=== PATIENT | male | born 1965 | race Caucasian/White ===

== ENCOUNTER → 2016-05-24 | Outpatient (CLI) | payer BC ==
[~2016-05-24] MED LIST: AVEED; BACTRIM DS 8001 TAB PO; BENICAR; CADUET 10 MG-201 TAB PO; CEPHALEXIN500 M1 PO; CLARITIN 1010 MG/TAB PO; COLCHICINE0.6 MG PO; COLCRYS0.6 MG PO; COSENTYX P150 MG/1 M SQ; DEPO-TESTOS200 MG/M1 IM; FOLIC ACID 11 MG/TA1 PO; INDOCIN50 MG PO; LEVAQUIN 750MG750 M1 PO; LIPITOR 10MG10 MG PO; LORTAB 5/500 501 TAB PO; MEDROL 4MG DOSPA4 MG PO; METHOTREXATE50/2 SQ; NO HOME MEDICATIONS; NORCO 325 MG-51 TAB PO; NORVASC 10MG10 MG PO; NORVASC2.5 MG; PREDNISONE10 MG PO; PRINIVIL2.5 MG; PRINIVIL40 MG PO; PROTONIX 40MG T40 MG PO; REMICADE V100 MG/VIA; ULORIC40 MG PO; ZYLOPRIM 300MG300 MG PO
[2016-05-24 16:19] LABS: BASO % 0.5 % (0.0-2.0); EOS # 0.1 (0.0-0.7); EOS % 1.1 % (0-4.0); GRAN # 5.6 (1.4-6.5); GRAN % 67.6 % (42.2-75.2); HEMOGLOBIN 16.4 g/dl (13.5-18.0); LYMPH # 1.7 (1.2-3.4); LYMPH % 21.1 % (20.0-51.0); MEAN CELL VOLUME 94 fl (80.0-100.0); MEAN CORPUSCULAR HEMOGLOBIN 32 pg (27.0-31.0); MEAN CORPUSCULAR HGB CONC 34 g/dl (33.0-37.0); MEAN PLATELET VOLUME 9.7 fl (7.4-10.4); MONO # 0.8 (0.1-0.6); MONO % 9.1 % (1.7-9.3); PLATELET COUNT 257 K/mm3 (130-400); REDCELL DISTRIBUTION WIDTH-CV 12.5 % (11.5-14.5); WHITE BLOOD COUNT 8.2 K/mm3 (4.8-10.8)
[2016-05-24 16:33] LABS: ADJUSTED CALCIUM 9.4 mg/dL (8.4-10.2); ALBUMIN 4.3 gm/dL (3.5-5.0); CALCIUM 9.6 mg/dL (8.4-10.2); CREATININE, serum 1.09 mg/dL (0.66-1.25); POTASSIUM 4.4 mmol/L (3.4-5.0); TOTAL PROTEIN 7.3 gm/dL (6.4-8.2)
== END ==
LOC: COL.RAD 15:10
PROVIDERS: Internal Medicine
DX: R10.31 Right lower quadrant pain (principal)
CPT/HCPCS: Q9967

== ENCOUNTER → 2016-06-27 | Outpatient (CLI) | payer BC ==
[2016-06-27 17:24] LABS: HEMATOCRIT 50.3 % (42.0-52.0); HEMOGLOBIN 17.3 g/dl (13.5-18.0); MEAN CELL VOLUME 91 fl (80.0-100.0); MEAN CORPUSCULAR HEMOGLOBIN 31 pg (27.0-31.0); MEAN CORPUSCULAR HGB CONC 34 g/dl (33.0-37.0); MEAN PLATELET VOLUME 9.8 fl (7.4-10.4); PLATELET COUNT 227 K/mm3 (130-400); RED BLOOD COUNT 5.53 M/mm3 (4.20-5.60); REDCELL DISTRIBUTION WIDTH-CV 12.7 % (11.5-14.5); WHITE BLOOD COUNT 9.9 K/mm3 (4.8-10.8)
== END ==
LOC: COL.RAD 16:42
PROVIDERS: Internal Medicine
DX: N43.3 Hydrocele, unspecified (principal); R30.9 Painful micturition, unspecified
CPT/HCPCS: G0103

== ENCOUNTER 2016-07-07 10:36 | Inpatient (IN) | payer BC ==
[~2016-07-07] VITALS: Ht 170.2 cm; Wt 88.4 kg
[~2016-07-07 10:36] MED LIST changes: -BACTRIM DS 8001 TAB PO; -CLARITIN 1010 MG/TAB PO; -MEDROL 4MG DOSPA4 MG PO; -PROTONIX 40MG T40 MG PO
[2016-07-07] MEDS ORDERED: BACTRIM DS 8001 TAB PO (10:44)
[2016-07-07] MEDS ORDERED: PROTONIX 40MG T40 MG PO (10:57)
[2016-07-07] MEDS ORDERED: ULORIC40 MG PO (10:59)
[2016-07-07 11:36] LABS: PH 5 (5-8); SQUAMOUS EPITHELIAL 0-2 /hpf; URINE APPEARANCE Clear; URINE BACTERIA Rare /hpf; URINE BILIRUBIN Negative (NEGATIVE); URINE BLOOD Negative (NEGATIVE); URINE COLOR Amber; URINE GLUCOSE Negative (NEGATIVE); URINE KETONE Negative (NEGATIVE); URINE RBC 0-2 /hpf; URINE UROBILINOGEN Negative (NEGATIVE); URINE WBC 0-2 /hpf
[2016-07-07 11:38] LABS: BASO % 0.2 % (0.0-2.0); EOS # 0.1 (0.0-0.7); EOS % 2.4 % (0-4.0); GRAN % 84.1 % (42.2-75.2); HEMATOCRIT 51.6 % (42.0-52.0); HEMOGLOBIN 17.3 g/dl (13.5-18.0); LYMPH # 0.4 (1.2-3.4); LYMPH % 6.3 % (20.0-51.0); MEAN CELL VOLUME 93 fl (80.0-100.0); MEAN CORPUSCULAR HEMOGLOBIN 31 pg (27.0-31.0); MEAN CORPUSCULAR HGB CONC 34 g/dl (33.0-37.0); MEAN PLATELET VOLUME 10.2 fl (7.4-10.4); MONO # 0.3 (0.1-0.6); MONO % 5.1 % (1.7-9.3); PLATELET COUNT 148 K/mm3 (130-400); RED BLOOD COUNT 5.58 M/mm3 (4.20-5.60); WHITE BLOOD COUNT 5.9 K/mm3 (4.8-10.8)
[2016-07-07 11:41] LABS: ALANINE AMINOTRANSFERASE 54 U/L (21-72); ALBUMIN 4.1 gm/dL (3.5-5.0); ALKALINE PHOSPHATASE 57 U/L (50-136); ANION GAP 14 mmol/L (7-16); BILIRUBIN,TOTAL 1.1 mg/dL (0.0-1.0); BLOOD UREA NITROGEN 30 mg/dL (9-20); C-REACTIVE PROTEIN 6.5 mg/dL (0.0-0.9); CALCIUM 9.1 mg/dL (8.4-10.2); CARBON DIOXIDE 25 mmol/L (22-30); CHLORIDE 91 mmol/L (98-107); CREATININE, serum 2.14 mg/dL (0.66-1.25); GLUCOSE 120 mg/dL (74-106); LIPASE 121 U/L (23-300); POTASSIUM 4.7 mmol/L (3.4-5.0); SODIUM 130 mmol/L (137-145); TOTAL PROTEIN 7.5 gm/dL (6.4-8.2)
[2016-07-07 11:51] LABS: TROPONIN-I < 0.012 ng/mL (0.000-0.034)
[2016-07-07 14:55] VITALS: BP 109/61; PULSE 112; TEMP 101.5
[2016-07-07 19:26] VITALS: BP 102/54; PULSE 96; TEMP 98.8
[2016-07-07 23:37] VITALS: BP 104/63; PULSE 96; TEMP 97.9
[2016-07-08 03:46] VITALS: BP 119/76; PULSE 88; TEMP 97.9
[2016-07-08 07:26] VITALS: BP 116/80; PULSE 86; TEMP 98.6
[2016-07-08 09:07] LABS: ADD PATHOLOGY DIFF REVIEW NO
[2016-07-08 09:18] LABS: HEMATOCRIT 47.1 % (42.0-52.0); HEMOGLOBIN 15.8 g/dl (13.5-18.0); MEAN CELL VOLUME 93 fl (80.0-100.0); MEAN CORPUSCULAR HEMOGLOBIN 31 pg (27.0-31.0); MEAN CORPUSCULAR HGB CONC 34 g/dl (33.0-37.0); MEAN PLATELET VOLUME 10.5 fl (7.4-10.4); PLATELET COUNT 148 K/mm3 (130-400); RED BLOOD COUNT 5.05 M/mm3 (4.20-5.60); REDCELL DISTRIBUTION WIDTH-CV 12.9 % (11.5-14.5); WHITE BLOOD COUNT 7.9 K/mm3 (4.8-10.8)
[2016-07-08 09:38] LABS: BAND 49 % (0-10); CALCIUM 8.8 mg/dL (8.4-10.2); CREATININE, serum 1.61 mg/dL (0.66-1.25); EOSINOPHIL 1 % (0-4); NEUTROPHILS 46 % (42.0-75.2); PLATELET ESTIMATE NORMAL (NORMAL); POTASSIUM 5.2 mmol/L (3.4-5.0); TOTAL CELLS COUNTED 100
[2016-07-08 11:53] VITALS: BP 118/74; PULSE 86; TEMP 98.3
[2016-07-08 15:20] VITALS: BP 128/70; PULSE 87; TEMP 97.9
[2016-07-08 19:36] VITALS: BP 111/68; PULSE 87; TEMP 98.9
[2016-07-08 22:44] VITALS: BP 119/68; PULSE 81; TEMP 97.7
[2016-07-09 04:13] VITALS: BP 115/63; PULSE 117; TEMP 99.7
[2016-07-09 07:32] VITALS: BP 114/68; PULSE 104; TEMP 99.8
[2016-07-09 07:55] LABS: HEMATOCRIT 45.3 % (42.0-52.0); HEMOGLOBIN 15.3 g/dl (13.5-18.0); MEAN CELL VOLUME 92 fl (80.0-100.0); MEAN CORPUSCULAR HEMOGLOBIN 31 pg (27.0-31.0); MEAN CORPUSCULAR HGB CONC 34 g/dl (33.0-37.0); MEAN PLATELET VOLUME 10.5 fl (7.4-10.4); PLATELET COUNT 143 K/mm3 (130-400); RED BLOOD COUNT 4.92 M/mm3 (4.20-5.60); REDCELL DISTRIBUTION WIDTH-CV 12.9 % (11.5-14.5); WHITE BLOOD COUNT 6.5 K/mm3 (4.8-10.8)
[2016-07-09 08:11] LABS: ADJUSTED CALCIUM 8.8 mg/dL (8.4-10.2); ALBUMIN 3.5 gm/dL (3.5-5.0); BILIRUBIN,TOTAL 0.7 mg/dL (0.0-1.0); CALCIUM 8.4 mg/dL (8.4-10.2); CREATININE, serum 1.28 mg/dL (0.66-1.25); POTASSIUM 4.5 mmol/L (3.4-5.0); TOTAL PROTEIN 6.5 gm/dL (6.4-8.2)
[2016-07-09 08:17] LABS: ADD PATHOLOGY DIFF REVIEW NO
[2016-07-09 08:23] LABS: BAND 30 % (0-10); EOSINOPHIL 10 % (0-4); NEUTROPHILS 43 % (42.0-75.2); PLATELET ESTIMATE NORMAL (NORMAL); TOTAL CELLS COUNTED 100
[2016-07-09 12:01] VITALS: BP 121/70; PULSE 95; TEMP 98.4
[2016-07-09 15:27] VITALS: BP 125/75; PULSE 86; TEMP 98.8
[2016-07-09 20:02] VITALS: BP 119/77; PULSE 84; TEMP 97.5
[2016-07-10 00:05] VITALS: BP 106/69; PULSE 75; TEMP 98.3
[2016-07-10 03:17] VITALS: BP 107/72; PULSE 77; TEMP 98
[2016-07-10 06:57] LABS: HEMATOCRIT 49.4 % (42.0-52.0); HEMOGLOBIN 16.6 g/dl (13.5-18.0); MEAN CELL VOLUME 91 fl (80.0-100.0); MEAN CORPUSCULAR HEMOGLOBIN 31 pg (27.0-31.0); MEAN CORPUSCULAR HGB CONC 34 g/dl (33.0-37.0); MEAN PLATELET VOLUME 10.2 fl (7.4-10.4); PLATELET COUNT 162 K/mm3 (130-400); RED BLOOD COUNT 5.42 M/mm3 (4.20-5.60); REDCELL DISTRIBUTION WIDTH-CV 12.8 % (11.5-14.5); WHITE BLOOD COUNT 5.1 K/mm3 (4.8-10.8)
[2016-07-10 07:00] LABS: ADD PATHOLOGY DIFF REVIEW NO
[2016-07-10 07:13] LABS: ADJUSTED CALCIUM 9.1 mg/dL (8.4-10.2); BILIRUBIN,TOTAL 0.7 mg/dL (0.0-1.0); CALCIUM 9.1 mg/dL (8.4-10.2); CREATININE, serum 1.25 mg/dL (0.66-1.25); POTASSIUM 4.3 mmol/L (3.4-5.0); TOTAL PROTEIN 7.3 gm/dL (6.4-8.2)
[2016-07-10 07:28] LABS: NEUTROPHILS 47 % (42.0-75.2)
[2016-07-10 07:29] LABS: BAND 29 % (0-10); EOSINOPHIL 1 % (0-4); PLATELET ESTIMATE NORMAL (NORMAL); TOTAL CELLS COUNTED 100
[2016-07-10 08:52] VITALS: BP 121/86; PULSE 77; TEMP 97.7
[2016-07-10] MEDS ORDERED: CLARITIN 1010 MG/TAB PO (10:06)
[2016-07-10 11:05] VITALS: BP 126/89; PULSE 88
[2016-07-10] MEDS ORDERED: MEDROL 4MG DOSPA4 MG PO (12:37)
== END 2016-07-10 14:15 | disposition home or self-care (01) | DRG 684 ==
LOC: COL.ER 10:36 → MEDICAL 13:27
PROVIDERS: Emergency Medicine; Family Medicine; Internal Medicine Cardiovascular Disease
DX: N17.9 Acute kidney failure, unspecified (principal); L27.1 Localized skin eruption due to drugs and medicaments taken internally; D72.1 Eosinophilia; T50.4X5A Adverse effect of drugs affecting uric acid metabolism, initial encounter; L40.50 Arthropathic psoriasis, unspecified; K29.70 Gastritis, unspecified, without bleeding; E87.5 Hyperkalemia; I10 Essential (primary) hypertension; E78.5 Hyperlipidemia, unspecified
CPT/HCPCS: 99232-AI; 99233-AI; 99239; J1200; J1644; J2405; J2930; J7030; J7512

== ENCOUNTER → 2016-07-31 | Outpatient (CLI) | payer BC ==
[~2016-07-31] MED LIST changes: +BACTRIM DS 8001 TAB PO; +CLARITIN 1010 MG/TAB PO; +MEDROL 4MG DOSPA4 MG PO; +PROTONIX 40MG T40 MG PO
[2016-07-31 14:09] LABS: BASO # 0.1 (0.0-0.2); BASO % 0.9 % (0.0-2.0); EOS # 0.3 (0.0-0.7); EOS % 5.3 % (0-4.0); GRAN # 2.8 (1.4-6.5); GRAN % 52.2 % (42.2-75.2); HEMOGLOBIN 17.1 g/dl (13.5-18.0); LYMPH # 1.7 (1.2-3.4); LYMPH % 30.4 % (20.0-51.0); MEAN CELL VOLUME 93 fl (80.0-100.0); MEAN CORPUSCULAR HEMOGLOBIN 31 pg (27.0-31.0); MEAN CORPUSCULAR HGB CONC 33 g/dl (33.0-37.0); MEAN PLATELET VOLUME 10.1 fl (7.4-10.4); MONO # 0.5 (0.1-0.6); MONO % 9.2 % (1.7-9.3); PLATELET COUNT 159 K/mm3 (130-400); REDCELL DISTRIBUTION WIDTH-CV 13.7 % (11.5-14.5); WHITE BLOOD COUNT 5.4 K/mm3 (4.8-10.8)
[2016-07-31 14:14] LABS: HEMATOCRIT 52.1 % (42.0-52.0)
[2016-07-31 14:18] LABS: ALBUMIN 4.3 gm/dL (3.5-5.0); BILIRUBIN,TOTAL 1.7 mg/dL (0.0-1.0); C-REACTIVE PROTEIN 0.8 mg/dL (0.0-0.9); CALCIUM 9.2 mg/dL (8.4-10.2); CREATININE, serum 1.19 mg/dL (0.66-1.25); POTASSIUM 3.6 mmol/L (3.4-5.0); TOTAL PROTEIN 7.3 gm/dL (6.4-8.2)
[2016-07-31 14:36] LABS: ADD PATHOLOGY DIFF REVIEW NO
[2016-07-31 14:42] LABS: BAND 7 % (0-10); EOSINOPHIL 5 % (0-4); METAMYELOCYTE 1 % (0-0); NEUTROPHILS 50 % (42.0-75.2); TOTAL CELLS COUNTED 100
[2016-07-31 14:43] LABS: PLATELET ESTIMATE NORMAL (NORMAL)
[2016-07-31 14:51] LABS: ERYTHROCYTE SEDIMENTATION RATE 6 mm/hr (0-30)
== END ==
LOC: COL.RAD 13:31
PROVIDERS: Internal Medicine
DX: R10.13 Epigastric pain (principal); R82.99 Other abnormal findings in urine
CPT/HCPCS: Q9967

== ENCOUNTER → 2016-08-01 | Outpatient (CLI) | payer BC | LOC: COL.RAD 12:38 | DX: Z53.9 Procedure and treatment not carried out, unspecified reason (principal) ==

== ENCOUNTER → 2016-08-02 | Outpatient (CLI) | payer BC | LOC: COL.RAD 06:32 | DX: R74.8 Abnormal levels of other serum enzymes (principal); K76.0 Fatty (change of) liver, not elsewhere classified ==

== ENCOUNTER → 2016-08-04 | Outpatient (CLI) | payer BC ==
[2016-08-04 08:14] LABS: ALBUMIN 4.3 gm/dL (3.5-5.0); BILIRUBIN,TOTAL 1.2 mg/dL (0.0-1.0); CALCIUM 9.2 mg/dL (8.4-10.2); CREATININE, serum 1.12 mg/dL (0.66-1.25); POTASSIUM 4.2 mmol/L (3.4-5.0); TOTAL PROTEIN 7.2 gm/dL (6.4-8.2)
== END ==
LOC: COL.LAB 06:17
PROVIDERS: Internal Medicine
DX: R74.8 Abnormal levels of other serum enzymes (principal)

== ENCOUNTER → 2016-08-07 | Outpatient (CLI) | payer BC ==
[2016-08-07 08:12] LABS: ADJUSTED CALCIUM 9.3 mg/dL (8.4-10.2); ALBUMIN 4.4 gm/dL (3.5-5.0); BILIRUBIN,TOTAL 1.4 mg/dL (0.0-1.0); CALCIUM 9.6 mg/dL (8.4-10.2); CREATININE, serum 1.2 mg/dL (0.66-1.25); POTASSIUM 3.9 mmol/L (3.4-5.0); TOTAL PROTEIN 7.1 gm/dL (6.4-8.2)
== END ==
LOC: COL.LAB 06:57
PROVIDERS: Internal Medicine
DX: R94.5 Abnormal results of liver function studies (principal)

== ENCOUNTER → 2016-08-10 | Outpatient (CLI) | payer BC | LOC: COL.RAD 08:33 | DX: R10.11 Right upper quadrant pain (principal) | CPT/HCPCS: A9537; J2805 ==

== ENCOUNTER 2017-04-01 09:01 | Emergency (ER) | payer BC ==
[~2017-04-01] VITALS: Ht 170.2 cm; Wt 84.1 kg
[2017-04-01 09:15] VITALS: BP 127/80; TEMP 98.6
[2017-04-01 10:10] LABS: BASO % 0.3 % (0.0-2.0); EOS # 0.1 (0.0-0.7); EOS % 0.5 % (0-4.0); GRAN # 9.1 (1.4-6.5); GRAN % 77.3 % (42.2-75.2); HEMATOCRIT 44.7 % (42.0-52.0); HEMOGLOBIN 15.2 g/dl (13.5-18.0); LYMPH # 1.5 (1.2-3.4); LYMPH % 12.5 % (20.0-51.0); MEAN CELL VOLUME 89 fl (80.0-100.0); MEAN CORPUSCULAR HEMOGLOBIN 30 pg (27.0-31.0); MEAN CORPUSCULAR HGB CONC 34 g/dl (33.0-37.0); MEAN PLATELET VOLUME 10.1 fl (7.4-10.4); MONO # 1.1 (0.1-0.6); MONO % 9.1 % (1.7-9.3); PLATELET COUNT 191 K/mm3 (130-400); RED BLOOD COUNT 5.02 M/mm3 (4.20-5.60); WHITE BLOOD COUNT 11.8 K/mm3 (4.8-10.8)
[2017-04-01] MEDS ORDERED: LIPITOR 10MG10 MG PO (10:24)
[2017-04-01 10:25] LABS: ADJUSTED CALCIUM 9.3 mg/dL (8.4-10.2); ALBUMIN 4.4 gm/dL (3.5-5.0); BILIRUBIN,TOTAL 0.9 mg/dL (0.0-1.0); C-REACTIVE PROTEIN 2.1 mg/dL (0.0-0.9); CALCIUM 9.6 mg/dL (8.4-10.2); CREATININE, serum 0.94 mg/dL (0.66-1.25); POTASSIUM 3.9 mmol/L (3.4-5.0); TOTAL PROTEIN 7.2 gm/dL (6.4-8.2); URIC ACID 8.5 mg/dL (3.5-8.5)
[2017-04-01] MEDS ORDERED: PAMELOR 25MG25 MG PO (10:25)
[2017-04-01] MEDS ORDERED: VITAMIND3 5000 (10:26)
[2017-04-01 10:44] LABS: ERYTHROCYTE SEDIMENTATION RATE 15 mm/hr (0-30)
[2017-04-01] MEDS ORDERED: PERCOCET 325 MG1 TA2 PO (12:08)
[2017-04-01] MEDS ORDERED: ZOFRAN 4MG T4 MG/TAB PO (12:15)
[2017-04-01 12:23] VITALS: PULSE 92
== END 2017-04-01 12:23 | disposition home or self-care (01) ==
LOC: COL.ER 09:01
PROVIDERS: Emergency Medicine
DX: M10.072 Idiopathic gout, left ankle and foot (principal)
CPT/HCPCS: J1170; J7030

== ENCOUNTER → 2018-01-15 | Outpatient (CLI) | payer BC ==
[~2018-01-15] MED LIST changes: +PAMELOR 25MG25 MG PO; +PERCOCET 325 MG1 TA2 PO; +VITAMIND3 5000; +ZOFRAN 4MG T4 MG/TAB PO
== END ==
LOC: COL.RAD 12:24
DX: M25.511 Pain in right shoulder (principal)

== ENCOUNTER → 2018-09-03 | Outpatient (CLI) | payer BC | LOC: COL.RAD 14:43 | DX: K86.1 Other chronic pancreatitis (principal); K76.0 Fatty (change of) liver, not elsewhere classified; Z90.49 Acquired absence of other specified parts of digestive tract | CPT/HCPCS: Q9967 ==

== ENCOUNTER → 2018-11-08 | Outpatient (CLI) | payer BC | LOC: COL.RAD 09:00 | DX: R22.0 Localized swelling, mass and lump, head (principal) ==

== ENCOUNTER → 2019-08-27 | Outpatient (CLI) | payer BC | LOC: COL.RAD 12:37 | DX: M25.551 Pain in right hip (principal); M25.552 Pain in left hip | CPT/HCPCS: J3301; Q9967 ==

== ENCOUNTER → 2019-12-19 | Outpatient (CLI) | payer BC | LOC: COL.RAD | DX: M25.511 Pain in right shoulder (principal) ==

== ENCOUNTER 2020-05-11 10:27 | Day surgery (SDC) | payer BC ==
[2020-05-11] VITALS (10 sets, daily range): BP systolic 112–146; BP diastolic 68–94; PULSE 77–93; TEMP 98.1
[~2020-05-11 10:27] MED LIST changes: +MASON NATURAL2000 IU PO; -PAMELOR 25MG25 MG PO; +PAMELOR75 MG PO; -VITAMIND3 5000
[2020-05-11 11:15] LABS: HEMATOCRIT 45.1 % (42.0-52.0); HEMOGLOBIN 15.9 g/dl (13.5-18.0); MEAN CELL VOLUME 88 fl (80.0-100.0); MEAN CORPUSCULAR HEMOGLOBIN 31 pg (27.0-31.0); MEAN CORPUSCULAR HGB CONC 35 g/dl (33.0-37.0); MEAN PLATELET VOLUME 10.2 fl (7.4-10.4); PLATELET COUNT 210 K/mm3 (130-400); RED BLOOD COUNT 5.13 M/mm3 (4.20-5.60); REDCELL DISTRIBUTION WIDTH-CV 11.9 % (11.5-14.5)
[2020-05-11] MEDS ORDERED: ZYLOPRIM 100MG100 MG PO (11:28)
[2020-05-11 11:29] LABS: PROTHROMBIN TIME 10.8 SECONDS (9.7-12.8)
[2020-05-11] MEDS ORDERED: ASPIRIN E.C. 8181 MG PO (11:29)
[2020-05-11] MEDS ORDERED: TOPROL XL 25MG25 MG PO (11:29)
[2020-05-11] MEDS ORDERED: PRINIVIL20 MG PO (11:30)
[2020-05-11 11:33] LABS: CALCIUM 9.2 mg/dL (8.4-10.2); CREATININE, serum 0.99 (0.66-1.25); POTASSIUM 4.3 mmol/L (3.4-5.0)
--- NOTE | 2020-05-11 12:43 | NUR ---
SEE MERGE DOCUMENTATION FOR MEDICATION ADMINISTRATION TIMES AND INTRA/POST PROCEDURE SEDATION ASSESSMENTS. RIGHT HAND BARBEAU TEST POSITIVE.
--- NOTE | 2020-05-11 13:46 | NUR ---
PT IS BACK FROM [facility] [facility], PT IS AWAKE AND ALERT, PWD. GAUZE DRESSING TO RT FEMORAL VEIN PUNCTURE, NO BLEEDING OR DISCOMFORT AT THIS TIME. TR BAND TO RT RADIAL SITE, CMS INTACT. SR ON MONITOR, VSS. LUNCH ORDERED, CALL LIGHT IN REACH.
--- NOTE | 2020-05-11 17:07 | NUR ---
PT IS READY FOR DISCHARGE. BEDREST WAS COMPLETED AT 1545, TR BAND HAS BEEN DEFLATED AND RT RADIAL PUNCTURE SITE WAS DRESSED WITH BANDAID, FOLDED 2X2 AND COBAN, CMS INTACT DISTAL. DURING PT'S BEDREST, RT FEMORAL VEIN PUNCTURE SITE DRESSING WAS CHANGED DUE TO SOME BLEEDING, PRESSURE WAS HELD, AND DRESSING WAS CHANGED, NO OOZING NOTED AT SITE WHEN DRESSING WAS CHANGED. I HAVE REVIEWED DC AND FU INSTRUCTIONS, PT VERBS UNDERSTANDING. IV WAS DC'D WITH CATH INTACT, DRESSING APPLIED.
--- NOTE | 2020-05-11 17:15 | NUR ---
TO EXIT VIA WHEELCHAIR.
== END 2020-05-11 17:31 | disposition home or self-care (01) ==
LOC: COL.CAR 10:27
PROVIDERS: Internal Medicine Cardiovascular Disease
DX: I25.10 Atherosclerotic heart disease of native coronary artery without angina pectoris (principal); I27.20 Pulmonary hypertension, unspecified; I10 Essential (primary) hypertension; M10.9 Gout, unspecified; Z88.1 Allergy status to other antibiotic agents; E78.2 Mixed hyperlipidemia
CPT/HCPCS: J1644; J2250; J3010; Q9967

== ENCOUNTER → 2021-01-21 | Outpatient (CLI) | payer BC ==
[~2021-01-21] MED LIST changes: +ASPIRIN E.C. 8181 MG PO; +PRINIVIL20 MG PO; +TOPROL XL 25MG25 MG PO; +ZYLOPRIM 100MG100 MG PO
== END ==
LOC: COL.RAD 12:31
DX: K86.1 Other chronic pancreatitis (principal); K76.0 Fatty (change of) liver, not elsewhere classified

== ENCOUNTER 2021-07-08 08:11 | Observation (INO) | payer BC ==
[~2021-07-08] VITALS: Ht 170.2 cm; Wt 90.1 kg
[~2021-07-08 08:11] MED LIST changes: +PAMELOR50 MG PO; -PAMELOR75 MG PO
[2021-07-08 09:27] LABS: BASO % 0.5 % (0.0-2.0); EOS % 0.5 % (0.0-4.0); GRAN # 6.4 K/mm3 (1.4-6.5); GRAN % 73.7 % (42.2-75.2); HEMATOCRIT 42.3 % (42.0-52.0); HEMOGLOBIN 15.5 g/dl (13.5-18.0); LYMPH # 1.1 K/mm3 (1.2-3.4); LYMPH % 12.5 % (20.0-51.0); MEAN CELL VOLUME 87 fl (80.0-100.0); MEAN CORPUSCULAR HEMOGLOBIN 32 pg (27-31); MEAN CORPUSCULAR HGB CONC 37 g/dl (33.0-37.0); MEAN PLATELET VOLUME 9.7 fl (7.4-10.4); MONO # 1.1 K/mm3 (0.1-0.6); MONO % 12.1 % (1.7-9.3); PLATELET COUNT 168 K/mm3 (130-400); RED BLOOD COUNT 4.85 M/mm3 (4.20-5.60); REDCELL DISTRIBUTION WIDTH-CV 12.2 % (11.5-14.5)
[2021-07-08 10:01] LABS: ALBUMIN 3.6 gm/dL (3.5-5.0); BILIRUBIN,TOTAL 2.3 mg/dL (0.2-1.2); CALCIUM 8.5 mg/dL (8.4-10.2); CREATININE, serum 0.93 mg/dL (0.72-1.25); POTASSIUM 3.4 mmol/L (3.5-4.5); TOTAL PROTEIN 6.7 gm/dL (6.2-8.1)
[2021-07-08] MEDS ORDERED: NEURONTIN100 MG/CAP PO (15:03)
[2021-07-08] MEDS ORDERED: NORCO 325 MG-7.1 TAB PO (15:05)
[2021-07-08] MEDS ORDERED: PLAQUENIL 200M200 MG PO (15:06)
[2021-07-08 15:50] VITALS: BP 132/83; PULSE 80; TEMP 97.6
[2021-07-08 16:32] LABS: COLLECTION METHOD CLEAN CATCH
[2021-07-08 16:58] LABS: MUCOUS Present (NOT PRESENT); PH 5 (5-8); SQUAMOUS EPITHELIAL 0-2 /hpf (0-10); URINE APPEARANCE Clear (CLEAR/HAZY); URINE BACTERIA None Seen /hpf (NONE SEEN); URINE BILIRUBIN Negative (NEGATIVE); URINE BLOOD Negative (NEGATIVE); URINE COLOR Yellow (YELLOW); URINE GLUCOSE Negative (NEGATIVE); URINE KETONE 1+ (NEGATIVE); URINE LEUKOCYTE ESTERASE Negative (NEGATIVE); URINE NITRATE Negative (NEGATIVE); URINE PROTEIN(semi-quant) Negative (NEGATIVE); URINE RBC 0-2 /hpf (0-2); URINE UROBILINOGEN >=4.0 (NEGATIVE)
--- NOTE | 2021-07-08 20:10 | NUR ---
PT WANTING TO GO AMA. PAPERWORK SIGNED BY PT. IV REMOVED BY GISELL DORANTES. SARAH MATTA NOTIFIED.
== END 2021-07-08 20:10 | disposition left against medical advice (07) ==
LOC: COL.ER 08:11 → MEDICAL 14:13
PROVIDERS: Physician Assistant; Student in an Organized Health Care Education/Training Program; ADMIT Internal Medicine
DX: R11.2 Nausea with vomiting, unspecified (principal); K86.1 Other chronic pancreatitis; K76.0 Fatty (change of) liver, not elsewhere classified; E87.6 Hypokalemia; J98.11 Atelectasis; L40.50 Arthropathic psoriasis, unspecified; G47.33 Obstructive sleep apnea (adult) (pediatric); Z91.19 Patient's noncompliance with other medical treatment and regimen; Z53.29 Procedure and treatment not carried out because of patient's decision for other reasons; Z79.899 Other long term (current) drug therapy
CPT/HCPCS: A9284; G0378; J1170; J1650; J2405; J2550; J3480; J7030; Q9967

== ENCOUNTER → 2021-09-26 | Outpatient (CLI) | payer BC ==
[~2021-09-26] MED LIST changes: +NEURONTIN100 MG/CAP PO; +NORCO 325 MG-7.1 TAB PO; +PLAQUENIL 200M200 MG PO
[2021-09-26 17:38] LABS: BASO # 0.1 K/mm3 (0.0-0.2); BASO % 0.7 % (0.0-2.0); EOS # 0.2 K/mm3 (0.0-0.7); GRAN # 4.6 K/mm3 (1.4-6.5); GRAN % 55.1 % (42.2-75.2); HEMATOCRIT 48.9 % (42.0-52.0); LYMPH # 2.6 K/mm3 (1.2-3.4); LYMPH % 30.9 % (20.0-51.0); MEAN CELL VOLUME 89 fl (80.0-100.0); MEAN CORPUSCULAR HEMOGLOBIN 31 pg (27-31); MEAN CORPUSCULAR HGB CONC 35 g/dl (33.0-37.0); MEAN PLATELET VOLUME 10.3 fl (7.4-10.4); MONO # 0.9 K/mm3 (0.1-0.6); MONO % 10.9 % (1.7-9.3); PLATELET COUNT 215 K/mm3 (130-400); RED BLOOD COUNT 5.51 M/mm3 (4.20-5.60)
[2021-09-26 17:51] LABS: ALBUMIN 4.1 gm/dL (3.5-5.0); BILIRUBIN,TOTAL 0.6 mg/dL (0.2-1.2); CALCIUM 9.3 mg/dL (8.4-10.2); CREATININE, serum 1.1 mg/dL (0.72-1.25); POTASSIUM 4.5 mmol/L (3.5-4.5); TOTAL PROTEIN 7.4 gm/dL (6.2-8.1)
== END ==
LOC: COL.LAB 17:07
PROVIDERS: Internal Medicine
DX: R10.2 Pelvic and perineal pain (principal)

== ENCOUNTER → 2021-09-28 | Outpatient (CLI) | payer BC | LOC: COL.RAD 12:23 | DX: K76.0 Fatty (change of) liver, not elsewhere classified (principal); N32.89 Other specified disorders of bladder; K63.89 Other specified diseases of intestine; Z90.49 Acquired absence of other specified parts of digestive tract | CPT/HCPCS: Q9967 ==

== ENCOUNTER 2023-04-27 11:14 | Emergency (ER) | payer BC ==
[~2023-04-27] VITALS: Ht 170.2 cm; Wt 90.9 kg
[2023-04-27 11:24] VITALS: TEMP 98.1
[2023-04-27 12:21] LABS: BASO # 0.1 K/mm3 (0.0-0.2); BASO % 0.7 % (0.0-2.0); EOS # 0.1 K/mm3 (0.0-0.7); EOS % 1.1 % (0.0-4.0); GRAN # 4.3 K/mm3 (1.4-6.5); GRAN % 61.3 % (42.2-75.2); HEMATOCRIT 47.1 % (42.0-52.0); HEMOGLOBIN 16.3 g/dl (13.5-18.0); LYMPH # 1.8 K/mm3 (1.2-3.4); LYMPH % 25.6 % (20.0-51.0); MEAN CELL VOLUME 92 fl (80.0-100.0); MEAN CORPUSCULAR HEMOGLOBIN 32 pg (27-31); MEAN CORPUSCULAR HGB CONC 35 g/dl (33.0-37.0); MEAN PLATELET VOLUME 9.9 fl (7.4-10.4); MONO # 0.7 K/mm3 (0.1-0.6); MONO % 10.3 % (1.7-9.3); PLATELET COUNT 204 K/mm3 (130-400); RED BLOOD COUNT 5.11 M/mm3 (4.20-5.60); REDCELL DISTRIBUTION WIDTH-CV 12.4 % (11.5-14.5)
[2023-04-27 12:35] LABS: ALANINE AMINOTRANSFERASE 45 U/L (0-55); ALBUMIN 4.3 gm/dL (3.5-5.0); ALKALINE PHOSPHATASE 66 U/L (40-150); ANION GAP 10 mmol/L (7-16); AST,SGOT 24 U/L (5-34); BILIRUBIN,TOTAL 0.8 mg/dL (0.2-1.2); BLOOD UREA NITROGEN 16 mg/dL (8-26); CALCIUM 10.2 mg/dL (8.4-10.2); CARBON DIOXIDE 25 mmol/L (22-29); CHLORIDE 102 mmol/L (98-107); CREATININE, serum 1.17 mg/dL (0.72-1.25); GLUCOSE 105 mg/dL (70-99); LIPASE 35 U/L (8-78); POTASSIUM 4.5 mmol/L (3.5-4.5); SODIUM 137 mmol/L (136-145); TOTAL PROTEIN 7.4 gm/dL (6.2-8.1)
[2023-04-27 12:39] LABS: COLLECTION METHOD CLEAN CATCH
[2023-04-27 12:43] LABS: TROPONIN-I < 0.010 ng/mL (0.00-0.033)
[2023-04-27 13:10] LABS: SQUAMOUS EPITHELIAL 0-2 /hpf (0-10); URINE APPEARANCE Clear (CLEAR/HAZY); URINE BACTERIA Rare /hpf (NONE SEEN); URINE BLOOD Negative (NEGATIVE); URINE COLOR Yellow (YELLOW); URINE GLUCOSE Negative (NEGATIVE); URINE KETONE Negative (NEGATIVE); URINE NITRATE Negative (NEGATIVE); URINE PROTEIN(semi-quant) Negative (NEGATIVE); URINE RBC None Seen /hpf (0-2); URINE UROBILINOGEN 0.2 E.U/dL (0.2-1.0); URINE WBC 0-2 /hpf (0-2)
[2023-04-27] MEDS ORDERED: ROXICODONE 55 MG/TAB PO (13:14)
[2023-04-27] MEDS ORDERED: AMOXICILLIN 8751 TAB PO (13:14)
[2023-04-27 13:25] VITALS: BP 124/86; PULSE 86
== END 2023-04-27 13:30 | disposition home or self-care (01) ==
LOC: COL.ER 11:14
PROVIDERS: Emergency Medicine
DX: K57.92 Diverticulitis of intestine, part unspecified, without perforation or abscess without bleeding (principal); Z88.2 Allergy status to sulfonamides
CPT/HCPCS: J1170; J2405; J7120; Q9967

== ENCOUNTER 2024-01-01 13:13 | Emergency (ER) | payer BC ==
[~2024-01-01] VITALS: Ht 170.2 cm; Wt 93.2 kg
[~2024-01-01 13:13] MED LIST changes: +AMOXICILLIN 8751 TAB PO; +ROXICODONE 55 MG/TAB PO
[2024-01-01 13:20] VITALS: TEMP 97.9
[2024-01-01] MEDS ORDERED: Ondansetron 4 MG/2 ML VIAL IV ONE (13:45)
[2024-01-01] MEDS ORDERED: NS 1,000 ML IV ONE (13:45)
[2024-01-01] MEDS ORDERED: Morphine 4 MG/ML VIAL IV ONE (13:45)
[2024-01-01 14:09] LABS: BASO % 0.5 % (0.0-2.0); EOS # 0.1 K/mm3 (0.0-0.7); EOS % 1.7 % (0.0-4.0); GRAN # 4.4 K/mm3 (1.4-6.5); GRAN % 56.5 % (42.2-75.2); HEMATOCRIT 41.5 % (42.0-52.0); HEMOGLOBIN 14.6 g/dl (13.5-18.0); LYMPH # 2.3 K/mm3 (1.2-3.4); LYMPH % 29.3 % (20.0-51.0); MEAN CELL VOLUME 90 fl (80.0-100.0); MEAN CORPUSCULAR HEMOGLOBIN 32 pg (27-31); MEAN CORPUSCULAR HGB CONC 35 g/dl (33.0-37.0); MEAN PLATELET VOLUME 9.9 fl (7.4-10.4); MONO # 0.9 K/mm3 (0.1-0.6); MONO % 11.5 % (1.7-9.3); PLATELET COUNT 232 K/mm3 (130-400)
[2024-01-01 14:27] LABS: ALBUMIN 4.1 g/dL (3.4-4.8); BILIRUBIN,TOTAL 0.5 mg/dL (0.2-1.2); CALCIUM 9.6 mg/dL (8.4-10.2); CREATININE, serum 1.35 mg/dL (0.72-1.25); POTASSIUM 4.2 mEq/L (3.5-4.5)
[2024-01-01] MEDS ORDERED: Iohexol 300 - 100 ML VIAL IV ONE (14:39)
[2024-01-01] MEDS ORDERED: NS 100 ML IV SCH (14:40)
[2024-01-01] MEDS ORDERED: ULTRAM 50MG TAB50 MG PO ×2 (15:37→15:42)
[2024-01-01] MEDS ORDERED: fentaNYL 50 MCG/ML 2 ML VIAL IM ONE (15:45)
[2024-01-01] MEDS ORDERED: fentaNYL 50 MCG/ML 2 ML VIAL IV ONE (15:45)
[2024-01-01 16:05] VITALS: BP 141/90; PULSE 99
== END 2024-01-01 16:12 | disposition home or self-care (01) ==
LOC: COL.ER 13:13
PROVIDERS: Personal Emergency Response Attendant
DX: R10.84 Generalized abdominal pain (principal)
CPT/HCPCS: J2270; J2405; J3010; J7030; Q9967

== ENCOUNTER → 2024-01-02 | Outpatient (CLI) | payer BC ==
[~2024-01-02] MED LIST changes: +ULTRAM 50MG TAB50 MG PO
== END ==
LOC: DIA.ED 06:40
DX: E11.9 Type 2 diabetes mellitus without complications (principal); Z79.84 Long term (current) use of oral hypoglycemic drugs; I10 Essential (primary) hypertension; E78.5 Hyperlipidemia, unspecified
CPT/HCPCS: G0108

== ENCOUNTER → 2024-02-13 | Outpatient (CLI) | payer BC | LOC: DIA.ED 06:36 | DX: E11.9 Type 2 diabetes mellitus without complications (principal); E78.5 Hyperlipidemia, unspecified; I10 Essential (primary) hypertension; Z79.84 Long term (current) use of oral hypoglycemic drugs ==